=== PATIENT | male | born 1965 | race Asian ===

== ENCOUNTER → 2019-03-24 | Outpatient (CLI) | payer OTHER | LOC: YHH 15:06 ==

== ENCOUNTER 2021-05-17 13:21 | Emergency (ER) | payer OTHER ==
[2021-05-17 13:27] VITALS: BP 109/73; PULSE 71; TEMP 97.7; BMI 29.0
[2021-05-17] MEDS ORDERED: morphine CARPU-JECT 4 MG/1 ML DISP.SYRIN IVPUSH ONE (14:33)
[2021-05-17] MEDS ORDERED: FAMOTIDINE 20 MG/50 ML IVPB 20 MG/50 ML MG IVPB ONE ×2 (14:33→15:43)
[2021-05-17] MEDS ORDERED: SODIUM CHLORIDE 1,000 ML IV STA (14:33)
[2021-05-17] MEDS ORDERED: ONDANSETRON 4 MG/2 ML VIAL IVPUSH ONE (14:33)
[2021-05-17 15:39] LABS: BASO % 0.6 % (0-2.0); EOS % 1.7 % (0-4.5); HEMATOCRIT 38.2 % (35.4-49); HEMOGLOBIN 13.2 GM/dL (11.7-16.9); LYMPH % 38.3 % (8-40); MCHC 34.6 g/dl (32.0-35.9); MEAN CELL VOLUME 83.9 fl (80-96); MEAN PLT VOLUME 8.9 fl (7.5-11.1); MONO % 8.1 % (3.8-10.2); NEUT % 51.3 % (42.8-82.8); PLATELET COUNT 154 10^3/uL (134-434); RBC 4.56 M/mm3 (4.00-5.60); RDW 13.9 % (11.9-15.9); WHITE BLOOD COUNT 4.7 K/mm3 (4.0-10.0)
[2021-05-17 15:40] LABS: PH,URINE 5.5 (5.0-8.0); URINE APPEARANCE CLEAR; URINE BILIRUBIN NEGATIVE (NEGATIVE); URINE COLOR YELLOW; URINE GLUCOSE (UA) NEGATIVE (NEGATIVE); URINE KETONE TRACE (NEGATIVE); URINE LEUK ESTERASE NEGATIVE (NEGATIVE); URINE NITRITE NEGATIVE (NEGATIVE); URINE PROTEIN NEGATIVE (NEGATIVE); URINE UROBILINOGEN 0.2 mg/dL (0.2-1.0)
[2021-05-17] MEDS ORDERED: ONDANSETRON 4 MG/2 ML VIAL ONE (15:43)
[2021-05-17] MEDS ORDERED: morphine SULFATE 4 MG/ML VIAL ONE (15:43)
[2021-05-17 15:47] LABS: INR 1.08 (0.83-1.09); PROTHROMBIN TIME (PATIENT) 12.1 SEC (9.7-13.0)
[2021-05-17 15:50] LABS: ACTIVATED PTT 33.1 SECONDS (25.2-36.5)
[2021-05-17 16:02] LABS: ALBUMIN 4.1 g/dl (3.4-5.0); CALCIUM 9.4 mg/dL (8.5-10.1); MAGNESIUM 1.9 mg/dL (1.8-2.4)
[2021-05-17 16:05] LABS: CREATININE 1.1 mg/dL (0.55-1.3)
[2021-05-17 16:06] LABS: BILIRUBIN,TOTAL 0.3 mg/dL (0.2-1)
[2021-05-17 16:07] LABS: TOT PROT 7.7 g/dl (6.4-8.2)
== END 2021-05-17 19:25 | disposition home or self-care (01) ==
LOC: JER 13:21
PROC: 3E033NZ Introduction of Analgesics, Hypnotics, Sedatives into Peripheral Vein, Percutaneous Approach (ICD-10-PCS; principal; 2021-05-17)
PROC: 3E033GC Introduction of Other Therapeutic Substance into Peripheral Vein, Percutaneous Approach (ICD-10-PCS; 2021-05-17)
PROC: 3E033GC Introduction of Other Therapeutic Substance into Peripheral Vein, Percutaneous Approach (ICD-10-PCS; 2021-05-17)
PROC: 3E0337Z Introduction of Electrolytic and Water Balance Substance into Peripheral Vein, Percutaneous Approach (ICD-10-PCS; 2021-05-17)
DX: R10.13 Epigastric pain (principal)
CPT/HCPCS: 36415; 74177-TC; 80053; 81003; 83690; 83735; 85025; 85610; 85730; 87086; 99285-25; Q9967

== ENCOUNTER 2022-11-03 04:10 | Day surgery (SDC) | payer OTHER ==
[2022-10-30 15:59] VITALS: BMI 29.0
[2022-11-03 11:37] VITALS: RESP 18
[2022-11-03] MEDS ORDERED: MIDAZOLAM HCL 2 MG/2 ML SINGLE DOSE VIAL ONE (14:49)
[2022-11-03 18:43] VITALS: BP 138/72; PULSE 68; TEMP 97.9
== END 2022-11-03 17:23 | disposition home or self-care (01) ==
LOC: JASU-SURG 04:10
PROVIDERS: ATTEND Urology
PROC: 0TF3XZZ Fragmentation in Right Kidney Pelvis, External Approach (ICD-10-PCS; principal; 2022-11-03 13:30)
DX: N20.0 Calculus of kidney (principal)

== ENCOUNTER 2024-06-24 07:24 | Emergency (ER) | payer OTHER ==
[2024-06-24 07:34] VITALS: TEMP 97.5; BMI 29.0
[2024-06-24] MEDS ORDERED: MAG HYDROX/AL HYDROX/SIMETH 30 ML UNIT-DOSE CUP ONE (08:24)
[2024-06-24] MEDS ORDERED: ACETAMINOPHEN INJECTION 100 ML ONE (08:24)
[2024-06-24] MEDS ORDERED: FAMOTIDINE 20 MG/50 ML IVPB 20 MG/50 ML MG IVPB ONE (08:24)
[2024-06-24] MEDS ORDERED: SUCRALFATE 1 GM TABLET (FP) ONE (08:24)
[2024-06-24] MEDS: SUCRALFATE 1 GM TABLET (FP) PO ONE (08:27)
[2024-06-24 08:46] LABS: INR 0.98 (0.83-1.09); PROTHROMBIN TIME (PATIENT) 11.3 SEC (9.7-13.0)
[2024-06-24 08:49] LABS: ACTIVATED PTT 32.7 SECONDS (25.2-36.5)
[2024-06-24 08:55] LABS: BASO % 0.6 % (0-2.0); HEMATOCRIT 41.1 % (35.4-49); HEMOGLOBIN 13.3 GM/dL (11.7-16.9); LYMPH % 37.5 % (8-40); MCH 28.1 pg (25.7-33.7); MCHC 32.3 g/dl (32.0-35.9); MONO % 10.9 % (3.8-10.2); PLATELET COUNT 143 10^3/uL (134-434); RBC 4.72 M/mm3 (4.00-5.60); RDW 14.5 % (11.9-15.9); WHITE BLOOD COUNT 4.3 K/mm3 (4.0-10.0)
[2024-06-24 08:57] LABS: POTASSIUM 4.1 mmol/L (3.5-5.1)
[2024-06-24 08:58] LABS: MAGNESIUM 1.9 mg/dL (1.8-2.4)
[2024-06-24 08:59] LABS: CALCIUM 9.4 mg/dL (8.5-10.1)
[2024-06-24 09:00] LABS: ALBUMIN 3.8 g/dl (3.4-5.0); BLOOD UREA NITROGEN 12.8 mg/dL (7-18)
[2024-06-24 09:04] LABS: TOT PROT 6.9 g/dl (6.4-8.2)
[2024-06-24] MEDS: ACETAMINOPHEN 1000 MG/100 ML BAG IVPB ONE (09:11)
[2024-06-24] MEDS: MAG HYDROX/AL HYDROX/SIMETH 30 ML UNIT-DOSE CUP PO ONE (09:11)
[2024-06-24] MEDS: FAMOTIDINE 20 MG/50 ML IVPB 20 MG/50 ML MG IVPB ONE (09:11)
[2024-06-24 09:14] LABS: BILIRUBIN,TOTAL 0.4 mg/dL (0.2-1)
[2024-06-24] MEDS: LIDOCAINE VISCOUS 2% ORAL/TOP 15 ML UNIT-DOSE CUP MM ONE ×2 (10:25)
[2024-06-24] MEDS ORDERED: LIDOCAINE VISCOUS 2% ORAL/TOP 15 ML UNIT-DOSE CUP ONE (10:26)
[2024-06-24 11:45] VITALS: BP 120/72; PULSE 69; RESP 18
[2024-06-24 23:27] LABS: HIV INTERPRETATION PRESUMPTIVE POSITIVE (NEGATIVE)
== END 2024-06-24 12:14 | disposition home or self-care (01) ==
LOC: JER 07:24
PROC: 3E033GC Introduction of Other Therapeutic Substance into Peripheral Vein, Percutaneous Approach (ICD-10-PCS; principal; 2024-06-24)
PROC: 3E033NZ Introduction of Analgesics, Hypnotics, Sedatives into Peripheral Vein, Percutaneous Approach (ICD-10-PCS; 2024-06-24)
DX: K29.70 Gastritis, unspecified, without bleeding (principal); R10.13 Epigastric pain
CPT/HCPCS: 36415; 76705-TC; 80053; 83690; 83735; 84439; 84443; 85025; 85610; 85730; 86803; 87389; 87522; 99284-25; J0131